=== PATIENT | female | born 1930 | race Caucasian/White ===

== ENCOUNTER → 2016-03-27 | Outpatient (CLI) | payer MEDICARE, OTHER | END | disposition home or self-care (01) | LOC: PCVCIMAG 11:14 | PROVIDERS: ATTEND Internal Medicine Cardiovascular Disease | DX: I65.23 Occlusion and stenosis of bilateral carotid arteries (principal); G45.9 Transient cerebral ischemic attack, unspecified; E78.00 Pure hypercholesterolemia, unspecified; I48.91 Unspecified atrial fibrillation; I10 Essential (primary) hypertension | CPT/HCPCS: 80061; 93005; 93306; 93880; G0463 ==

== ENCOUNTER → 2016-07-26 | Outpatient (CLI) | payer MEDICARE, OTHER | END | disposition home or self-care (01) | LOC: PCVCCLINIC 15:40 | PROVIDERS: ATTEND Internal Medicine Cardiovascular Disease | DX: I48.2 Chronic atrial fibrillation (principal); I10 Essential (primary) hypertension; E78.00 Pure hypercholesterolemia, unspecified; I83.90 Asymptomatic varicose veins of unspecified lower extremity; E78.1 Pure hyperglyceridemia; E03.9 Hypothyroidism, unspecified; I73.9 Peripheral vascular disease, unspecified; E11.9 Type 2 diabetes mellitus without complications; Z88.1 Allergy status to other antibiotic agents; Z79.82 Long term (current) use of aspirin; Z79.899 Other long term (current) drug therapy | CPT/HCPCS: 80061; 93005; G0463 ==

== ENCOUNTER → 2016-07-31 | Outpatient (CLI) | payer MEDICARE, OTHER ==
--- NOTE | 2016-07-31 13:18 | PCVCIMAG ---
EXAM: BILATERAL SUPERFICIAL VENOUS DUPLEX INDICATION: Leg pain and swelling. FINDINGS: Right leg: No thrombus in the common femoral, main femoral, or popliteal veins. These veins are compressible. Right Great Saphenous Vein: At the saphenofemoral junction the diameter is 8.7 mm, in the mid thigh it is 5.6 mm, and in the calf it is 6.3 mm. There is significant venous insufficiency/reflux throughout. Venous insufficiency/reflux duration is 8.9 seconds. Right Small Saphenous Vein: At the saphenopopliteal junction the diameter is 5.5 mm, and in the calf it is 5.0 mm. There is significant venous insufficiency/reflux throughout. Venous insufficiency/reflux duration is 1.0 seconds. There is a cranial extension present. Left leg: No thrombus in the common femoral, main femoral, or popliteal veins. These veins are compressible. Left Great Saphenous Vein: At the saphenofemoral junction the diameter is 9.0 mm, in the mid thigh it is 5.6 mm, and in the calf it is 5.5 mm. There is significant venous insufficiency/reflux throughout. Venous insufficiency/reflux duration is 1.7 seconds. Left Small Saphenous Vein: At the saphenopopliteal junction the diameter is 6.0 mm, and in the calf it is 6.9 mm. There is significant venous insufficiency/reflux throughout. Venous insufficiency/reflux duration is 7.6 seconds. There is a cranial extension present. IMPRESSION: Right Great Saphenous Vein: Significant venous insufficiency/reflux is present as noted above. Right Small Saphenous Vein: Significant venous insufficiency/reflux is present as noted above. Left Great Saphenous Vein: Significant venous insufficiency/reflux is present as noted above. Left Small Saphenous Vein: Significant venous insufficiency/reflux is present as noted above. LOC:[id number]
== END | disposition home or self-care (01) ==
LOC: PCVCIMAG 11:09
PROVIDERS: ATTEND Internal Medicine Cardiovascular Disease
DX: I86.8 Varicose veins of other specified sites (principal); I73.9 Peripheral vascular disease, unspecified; I87.2 Venous insufficiency (chronic) (peripheral); I10 Essential (primary) hypertension; I48.2 Chronic atrial fibrillation; E11.9 Type 2 diabetes mellitus without complications
CPT/HCPCS: 93970

== ENCOUNTER → 2016-08-04 | Outpatient (CLI) | payer MEDICARE, OTHER | END | disposition home or self-care (01) | LOC: PCVCCLINIC 08-03 09:40 | PROVIDERS: ATTEND Nuclear Medicine Nuclear Cardiology | DX: I73.9 Peripheral vascular disease, unspecified (principal); I87.2 Venous insufficiency (chronic) (peripheral); I10 Essential (primary) hypertension; I48.91 Unspecified atrial fibrillation; E11.9 Type 2 diabetes mellitus without complications; E03.9 Hypothyroidism, unspecified; E78.00 Pure hypercholesterolemia, unspecified; Z79.82 Long term (current) use of aspirin; Z79.899 Other long term (current) drug therapy; Z88.2 Allergy status to sulfonamides | CPT/HCPCS: G0463 ==

== ENCOUNTER → 2017-01-26 | Outpatient (CLI) | payer MEDICARE, OTHER ==
--- NOTE | 2017-01-26 18:20 | PCVCIMAG ---
EXAM: VENOUS DUPLEX LEFT LOWER EXTREMITY INDICATION: Leg pain and swelling. FINDINGS: Left leg: No thrombus in the common femoral, main femoral, or popliteal veins. These veins are compressible with phasic flow. Calf veins are unremarkable where seen. IMPRESSION: No evidence of deep venous thrombosis in the left lower extremity as detailed above. LOC:OFFICE
== END | disposition home or self-care (01) ==
LOC: PCVCCLINIC 13:07
PROVIDERS: ATTEND Internal Medicine Cardiovascular Disease
DX: I48.2 Chronic atrial fibrillation (principal); M79.89 Other specified soft tissue disorders; I10 Essential (primary) hypertension; I87.2 Venous insufficiency (chronic) (peripheral); I73.9 Peripheral vascular disease, unspecified; E78.00 Pure hypercholesterolemia, unspecified; Z79.82 Long term (current) use of aspirin; Z79.899 Other long term (current) drug therapy
CPT/HCPCS: 80061; 93005; 93971; G0463

== ENCOUNTER → 2017-08-24 | Outpatient (CLI) | payer MEDICARE, OTHER | END | disposition home or self-care (01) | LOC: PCVCCLINIC 14:34 | DX: I48.2 Chronic atrial fibrillation (principal); I10 Essential (primary) hypertension; E78.00 Pure hypercholesterolemia, unspecified; I77.9 Disorder of arteries and arterioles, unspecified; D68.59 Other primary thrombophilia; Z79.899 Other long term (current) drug therapy | CPT/HCPCS: 80061; 93005; G0463 ==

== ENCOUNTER → 2017-12-19 | Outpatient (CLI) | payer MEDICARE, OTHER ==
--- NOTE | 2017-12-19 14:26 | PCVCIMAG ---
EXAM: BILATERAL CAROTID DUPLEX INDICATION: Carotid Occlusive Disease. FINDINGS: Doppler Measurements (centimeters per second): RIGHT: Peak CCA-60, Peak ECA-413, Diastolic ICA-31, Peak ICA-124, ICA/CCA Ratio-2.1. LEFT: Peak CCA-65, Peak ECA-92, Diastolic ICA-39, Peak ICA-116, ICA/CCA Ratio-1.8. RIGHT CAROTID: The carotid bulb has moderate plaque. The proximal internal carotid artery shows 40-50% stenosis. The common carotid artery shows no significant stenosis. The external carotid artery shows 90% stenosis. LEFT CAROTID: The carotid bulb has moderate plaque. The proximal internal carotid artery shows 40% stenosis. The common carotid artery shows no significant stenosis. The external carotid artery shows no significant stenosis. Antegrade flow in both vertebral arteries. IMPRESSION: 40-50% stenosis of the right internal carotid artery with moderate plaque. 40% stenosis of the left internal carotid artery with moderate plaque. No change since March 2016 study. LOC:[id number]
--- NOTE | 2017-12-19 14:47 | PCVCIMAG ---
APPROVED REPORT Study performed: 12/19/2017 13:54:30 EXAM: Comprehensive 2D, Doppler, and color-flow Echocardiogram Patient Location: Echo lab Status: routine BSA: 1.89 HR: 68 bpmBP: 128/66 mmHg Rhythm: Atrial Fibrillation Other Information Study Quality: Adequate Technically limited study due to body habitus. Risk Factors: Cardiac Risk Factors: HTN Indications Atrial Fibrillation obesity 2D Dimensions IVSd: 11.52 (7-11mm) LVDd: 43.95 mm PWd: 11.48 (7-11mm)Ascending Ao: 33.59 (22-36mm) LVDs: 33.09 (25-40mm) Left Atrium: 47.68 (27-40mm) Aortic Root: 27.61 mm LV Single Plane 4CH: 37.55 % LV Single Plane 2CH: 56.45 % Volumes Left Atrial Volume (Systole) Single Plane 4CH: 119.46 mLSingle Plane 2CH: 138.30 mL LA ESV Index: 79.00 mL/m2 Aortic Valve AoV Peak Uvaldo.: 1.24 m/s AO Peak Gr.: 7.67 mmHgLVOT Max P.51 mmHg LVOT Max V: 0.61 m/s AI Vmax: 4.65 m/s AI Moody: 2.45 m/s2 AI PHT: 554.51 ms Pulmonary Valve PV Peak Uvaldo.: 0.77 m/sPV Peak Gr.: 2.36 mmHg Tricuspid Valve TR Peak Uvaldo.: 3.24 m/s TR Peak Gr.: 42.01 mmHg Left Ventricle The left ventricle is normal size. There is normal LV segmental wall motion. Mild concentric left ventricular hypertrophy. Left ventricular systolic function is normal. The left ventricular ejection fraction is within the normal range. LVEF is 50-55%. This study is not technically sufficient to allow evaluation of the LV diastolic function due to atrial fibrillation. Right Ventricle The right ventricle is normal size. The right ventricular systolic function is normal. Atria Left atrium is severely dilated. Right atrium is severely dilated. Aortic Valve Mild aortic valve sclerosis. Mild aortic regurgitation. There is no aortic valvular stenosis. Mitral Valve Heavy posterior mitral annular calcification without stenosis. Mild to moderate mitral regurgitation. No evidence of mitral valve stenosis. Tricuspid Valve The tricuspid valve is normal in structure. Severe tricuspid regurgitation with PAP of 52 mmHg. Pulmonic Valve The pulmonary valve is normal in structure. Mild pulmonic regurgitation. Great Vessels The aortic root is normal in size. IVC is dilated and collapses >50% with inspiration. Pericardium Mild circumferential pericardial effusion. There is no pleural effusion. <Conclusion> The left ventricle is normal size. Mild concentric left ventricular hypertrophy. LVEF is 50-55%. This study is not technically sufficient to allow evaluation of the LV diastolic function due to atrial fibrillation. The right ventricle is normal size. Left atrium is severely dilated. Right atrium is severely dilated. Mild aortic valve sclerosis. Mild aortic regurgitation. Heavy posterior mitral annular calcification without stenosis. Mild to moderate mitral regurgitation. Severe tricuspid regurgitation with PAP of 52 mmHg. The aortic root is normal in size. Mild circumferential pericardial effusion.
== END | disposition home or self-care (01) ==
LOC: PCVCIMAG 12:37
PROVIDERS: ATTEND Internal Medicine Cardiovascular Disease
DX: I08.3 Combined rheumatic disorders of mitral, aortic and tricuspid valves (principal); I65.23 Occlusion and stenosis of bilateral carotid arteries; E11.51 Type 2 diabetes mellitus with diabetic peripheral angiopathy without gangrene; I10 Essential (primary) hypertension; E78.5 Hyperlipidemia, unspecified; I48.2 Chronic atrial fibrillation; E78.00 Pure hypercholesterolemia, unspecified; I87.2 Venous insufficiency (chronic) (peripheral); R60.0 Localized edema; M79.605 Pain in left leg; E03.9 Hypothyroidism, unspecified
CPT/HCPCS: 80061; 93005; 93306; 93880; G0463

== ENCOUNTER → 2018-06-19 | Outpatient (CLI) | payer MEDICARE, OTHER | END | disposition home or self-care (01) | LOC: PCVCCLINIC 14:00 | PROVIDERS: ATTEND Internal Medicine Cardiovascular Disease | DX: I48.2 Chronic atrial fibrillation (principal); E78.00 Pure hypercholesterolemia, unspecified; I87.2 Venous insufficiency (chronic) (peripheral); I10 Essential (primary) hypertension; E03.9 Hypothyroidism, unspecified; E11.9 Type 2 diabetes mellitus without complications; Z88.8 Allergy status to other drugs, medicaments and biological substances | CPT/HCPCS: 36415; 80061; 93005; G0463 ==

== ENCOUNTER → 2019-01-21 | Outpatient (CLI) | payer MEDICARE, OTHER ==
--- NOTE | 2019-01-21 11:35 | PCVCIMAG ---
EXAM: BILATERAL CAROTID DUPLEX INDICATION: Carotid Occlusive Disease. FINDINGS: Doppler Measurements (centimeters per second): RIGHT: Peak CCA-39, Peak ECA-506, Diastolic ICA-29, Peak ICA-111, ICA/CCA Ratio-2.8. LEFT: Peak CCA-56, Peak ECA-67, Diastolic ICA-25, Peak ICA-80, ICA/CCA Ratio-1.4. RIGHT CAROTID: The carotid bulb has moderate plaque. The proximal internal carotid artery shows 40-50% stenosis. The common carotid artery shows no significant stenosis. The external carotid artery shows 95% stenosis. LEFT CAROTID: The carotid bulb has moderate plaque. The proximal internal carotid artery shows <40% stenosis. The common carotid artery shows no significant stenosis. The external carotid artery shows no significant stenosis. Antegrade flow in both vertebral arteries. IMPRESSION: 40-50% stenosis of the right internal carotid artery with moderate plaque. <40% stenosis of the left internal carotid artery with moderate plaque. No change since December 2017 study. LOC:[id number]
== END | disposition home or self-care (01) ==
LOC: PCVCIMAG 11:25
PROVIDERS: ATTEND Internal Medicine Cardiovascular Disease
DX: I65.23 Occlusion and stenosis of bilateral carotid arteries (principal); R94.31 Abnormal electrocardiogram [ECG] [EKG]; E11.9 Type 2 diabetes mellitus without complications; I10 Essential (primary) hypertension; E78.00 Pure hypercholesterolemia, unspecified; E03.9 Hypothyroidism, unspecified; C50.919 Malignant neoplasm of unspecified site of unspecified female breast; D68.59 Other primary thrombophilia; Z90.49 Acquired absence of other specified parts of digestive tract; Z96.659 Presence of unspecified artificial knee joint; Z80.0 Family history of malignant neoplasm of digestive organs; Z79.82 Long term (current) use of aspirin; Z79.899 Other long term (current) drug therapy; Z88.8 Allergy status to other drugs, medicaments and biological substances
CPT/HCPCS: 36415; 80061; 93005; 93880; G0463

== ENCOUNTER → 2019-01-21 | Outpatient (CLI) | payer MEDICARE, OTHER | END | disposition home or self-care (01) | LOC: PCVCCLINIC 09:30 | PROVIDERS: ATTEND Internal Medicine Cardiovascular Disease | DX: I48.21 Permanent atrial fibrillation (principal); E78.00 Pure hypercholesterolemia, unspecified; I65.23 Occlusion and stenosis of bilateral carotid arteries; D68.59 Other primary thrombophilia; C50.919 Malignant neoplasm of unspecified site of unspecified female breast; E11.9 Type 2 diabetes mellitus without complications; I10 Essential (primary) hypertension; E03.9 Hypothyroidism, unspecified; Z90.49 Acquired absence of other specified parts of digestive tract; Z79.82 Long term (current) use of aspirin; Z79.899 Other long term (current) drug therapy; Z88.8 Allergy status to other drugs, medicaments and biological substances | CPT/HCPCS: 36415; 80061; 93005; G0463 ==

== ENCOUNTER → 2019-01-30 | Outpatient (CLI) | payer MEDICARE, OTHER ==
[~2019-01-30] MED LIST: REGADENOSON 0.4 MG/5 ML DISP.SYRIN. IV ONE
--- NOTE | 2019-01-31 16:03 | PCVCIMAG ---
APPROVED REPORT Imaging Protocol: Rest Tc-99m/Stress Tc-99m 1 day Study performed: 01/30/2019 08:54:43 Indication: Afib Patient Location: Out-Patient Stress Nurse: Suzie Zimmerman RN, Phylicia Bullard RN PR Tech:REVA Renee Ht: 5 ft 2 in Wt: 190 lbs BSA: 1.87 m2 HR: 74 bpm BP: 192/83 mmHg BMI: 34.7 Rhythm: Atrial Fibrillation Medical History Medical History: Age, HLP, HTN, CVD, TIA, Recent Breast Cancer Dx Medications: ASA, Atorvastatin, Diltiazem, Lasix, Metoprolol, NTG, Xarelto Allergies: Sulfate Resting Data Rest SPECT myocardial perfusion imaging was performed in supine position 45 minutes following the intravenous injection of 10.8 mCi of Tc-99m Sestamibi. Time of rest injection: 0850 Date: 01/30/2019 Administration Route: IV Administration Site: Right AC Pharmacologic Stress Pharmacologic stress test was performed by injecting Regadenoson 0.4 mg IV push over 10-15 seconds immediately followed by the intravenous injection of 32.7 mCi of Tc-99m Sestamibi. Time of stress injection: 1020 Date: 01/30/2019 Administration Route: IV Administration Site: Right AC Gated Stress SPECT was performed 45 minutes after stress injection. The images were gated to evaluate regional wall motion and calculate left ventricular ejection fraction. Comments Patient was scanned with the left arm down due to an injury. Stress Test Details Stress Test: Pharmacologic stress testing performed using 0.4 mg of regadenoson per 5 mL given IV over 10 seconds. Reason for pharmacologic stress test: balance issues. HRMax Heart Rate (APMHR): 134 bpm Resting HR: 74 bpmTarget HR (85% APMHR): 113 bpm Max HR Achieved: 88 bpm % of APMHR: 65 Recovery HR: 72 bpm BP Resting BP: 192/83 mmHg Max BP: 187/90 mmHg Recovery BP: 178/75 mmHg ECG Resting ECG: Atrial Fibrillation Stress ECG: Atrial Fibrillation Arrhythmia: VPC's Recovery ECG: Atrial Fibrillation Clinical Reason for Termination: Completed protocol Stress Symptoms: None No complications. Stress ECG Conclusion ECG: Non-ischemic Study Quality Study: Good Study Data Post stress, the left ventricular ejection was 75%.. SSS: 3 SRS: 0 SDS: 3 TID = 1.11. Perfusion No evidence of stress induced ischemia or prior myocardial infarction. Wall Motion Normal left ventricular size and function with no regional wall motion abnormalities. Nuclear Conclusion No evidence of stress induced ischemia or prior myocardial infarction. Normal left ventricular size and function with no regional wall motion abnormalities. Post stress, the left ventricular ejection was 75%. No change since prior study dated July 2015. Interpreted by: Manohar Dey MD Electronically Approved: 01/30/2019 12:12:57 <Conclusion> ECG: Non-ischemic
== END | disposition home or self-care (01) ==
LOC: PCVCIMAG 08:32
PROVIDERS: ATTEND Internal Medicine Cardiovascular Disease
DX: I48.21 Permanent atrial fibrillation (principal); I10 Essential (primary) hypertension; Z78.0 Asymptomatic menopausal state; Z88.8 Allergy status to other drugs, medicaments and biological substances
CPT/HCPCS: 78452; 93017; A9500; J2785